=== PATIENT | female | born 1975 | race Two or more races ===

== ENCOUNTER → 2024-06-22 | Outpatient (CLI) | payer MEDICAID, SELFPAY ==
--- NOTE | 2024-06-22 07:30 | XR_ITS ---
Examination: CT maxillofacial, without intravenous contrast. 2-D sagittal reconstructions. 3-D reconstructions. Date and time of exam:June 22, 2024 at 0800 hours INDICATIONS: Sinus pressure and pain several years CTDI: vol (mGy):7.34 DLP: (mGycm):4 Technique: Multiple axial images of maxillofacial region, 3.0 mm slice thickness. 2-D sagittal and coronal reconstructions. 3-D reconstructions. Low dose protocols were performed. One or more of the following dose reduction techniques were used; automated exposure control, adjustment of the mA and/or KV according to patient size, use of iterative reconstruction technique. Findings: Trace mucosal thickening frontal air cells Mild mucosal thickening ethmoid air cells Occlusion right ostiomeatal complex secondary to significant right maxillary chronic sinus disease Mucosal thickening also obtained to 8 mm in the left maxillary antrum Deviation nasal septum to the left 8 mm Significant hypertrophy inferior nasal turbinates IMPRESSION: Significant chronic maxillary antral sinus disease with occlusion right ostiomeatal complex.
== END | disposition home or self-care (01) ==
PROVIDERS: Referring Provider Otolaryngology; Visit Provider Otolaryngology
DX: J32.0 Chronic maxillary sinusitis (principal); J32.8 Other chronic sinusitis
CPT/HCPCS: 70486